=== PATIENT | male | born 1995 ===

== ENCOUNTER 2023-07-07 13:04 | Outpatient (CLI) | payer OTHER ==
[2023-07-07 13:29] LABS: URINE APPEARANCE Clear; URINE BILIRRUBIN Negative (NEGATIVE); URINE BLOOD Negative; URINE COLOR Yellow; URINE GLUCOSE Negative (NEGATIVE); URINE LEUKOCYTE Negative; URINE NITRATE Negative; URINE PROTEIN Negative (NEGATIVE)
[2023-07-07 13:31] LABS: HEMOGLOBIN 14.8 g/dL (13-16.00); MEAN CELL VOLUME 82.8 fL (80.0-100.00); MEAN CORPUSCULAR HEMOGLOBIN 27.8 pg (27.00-32.0); MEAN CORPUSCULAR HGB CONC 33.5 g/dl (32.0-36.0); PLATELET COUNT 238 K/uL (150-450); RED BLOOD COUNT 5.32 M/uL (4.00-6.00); RED CELL DISTRIBUTION WIDTH 13.3 % (11.5-14.5)
[2023-07-07 13:33] LABS: URINE BACTERIA 16.3 uL (0.0-1933); URINE EPITHELIAL CELLS 1.5 uL (0.0-38.8); URINE RBC 5.3 uL (0.0-20.8)
[2023-07-07 14:15] LABS: ALBUMIN 3.9 gm/dL (3.4-5.0); BILIRUBIN TOTAL 1.02 mg/dL (0.3-1.2); CALCIUM 9.3 mg/dL (8.5-10.1); CHOL HDL RATIO 3.9 (0-5.0); CREATININE SERUM 1.06 mg/dL (0.70-1.30); GFR 83.19; GLOBULINA 3.5 G/DL (2.4-3.5); POTASSIUM 4.27 mEq/L (3.5-5.1); TOTAL PROTEIN 7.4 gm/dL (6.4-8.2)
[2023-07-07] MEDS ORDERED: SINGULAIR10 MG PO (15:10)
[2023-07-07] MEDS ORDERED: LOSART PO (15:10)
[2023-07-07] MEDS ORDERED: COZAAR25 MG PO (15:10)
[2023-07-07] MEDS ORDERED: SYNTHROID75 MCG PO (15:11)
== END 2023-07-07 13:05 | disposition home or self-care (01) ==
LOC: LAB 13:04
PROVIDERS: ATTEND Internal Medicine
DX: B35.4 Tinea corporis (principal); E55.9 Vitamin D deficiency, unspecified; Z88.0 Allergy status to penicillin; Z88.2 Allergy status to sulfonamides; Z88.6 Allergy status to analgesic agent

== ENCOUNTER → 2024-02-18 08:15 | Outpatient (CLI) | payer OTHER ==
[~2024-02-18 08:15] MED LIST: COZAAR25 MG PO; LOSART PO; SINGULAIR10 MG PO; SYNTHROID75 MCG PO
[2024-02-18 10:03] LABS: PH,URINE 7.5 (5.0-8.0); URINE APPEARANCE Clear; URINE BILIRRUBIN Negative (NEGATIVE); URINE BLOOD Negative; URINE COLOR Yellow; URINE GLUCOSE Negative (NEGATIVE); URINE LEUKOCYTE Negative; URINE NITRATE Negative; URINE PROTEIN Negative (NEGATIVE); URINE UROBILINOGEN 0.2 E.U./dl
[2024-02-18 10:11] LABS: HEMATOCRIT 42.1 % (39.0-48.0); HEMOGLOBIN 14.1 g/dL (13-16.00); MEAN CELL VOLUME 84.3 fL (80.0-100.00); MEAN CORPUSCULAR HEMOGLOBIN 28.2 pg (27.00-32.0); MEAN CORPUSCULAR HGB CONC 33.4 g/dl (32.0-36.0); PLATELET COUNT 225 K/uL (150-450); RED CELL DISTRIBUTION WIDTH 13.8 % (11.5-14.5)
[2024-02-18 10:16] LABS: URINE EPITHELIAL CELLS 0.4 uL (0.0-38.8); URINE RBC 0.9 uL (0.0-20.8); URINE WBC 0.9 uL (0.0-23.2)
[2024-02-18 10:38] LABS: ALBUMIN 3.8 gm/dL (3.4-5.0); BILIRUBIN TOTAL 0.58 mg/dL (0.3-1.2); CALCIUM 9.1 mg/dL (8.5-10.1); CREATININE SERUM 0.9 mg/dL (0.70-1.30); GFR 99.76; GLOBULINA 3.4 G/DL (2.4-3.5); POTASSIUM 3.94 mEq/L (3.5-5.1); TOTAL PROTEIN 7.2 gm/dL (6.4-8.2)
== END | disposition home or self-care (01) ==
LOC: LAB 08:15
PROVIDERS: ATTEND Internal Medicine
DX: E78.00 Pure hypercholesterolemia, unspecified (principal); E55.9 Vitamin D deficiency, unspecified; Z00.01 Encounter for general adult medical examination with abnormal findings

== ENCOUNTER 2024-06-02 09:57 | Outpatient (CLI) | payer OTHER ==
[2024-06-02 10:44] LABS: CHOL HDL RATIO 3.3 (0-5.0)
== END 2024-06-02 10:03 | disposition home or self-care (01) ==
LOC: LAB 09:57
PROVIDERS: ATTEND Internal Medicine
DX: E78.00 Pure hypercholesterolemia, unspecified (principal)

== ENCOUNTER 2025-02-18 08:58 | Outpatient (CLI) | payer OTHER ==
[2025-02-18 10:31] LABS: BASO % 0.2 % (0.1-1.2); EOS # 0.09 (0.04-0.54); EOS % 2.2 % (0.7-7.0); LYMPH # 2.01 (1.18-3.74); LYMPH % 49.4 % (19.3-53.1); MEAN PLATELET VOLUME 10.10 fl (9.4-12.4); MONO # 0.26 (0.24-0.82); MONO % 6.4 % (4.7-12.5); NEUT # 1.69 (1.56-6.13); NEUT % 41.6 % (34.0-71.1); RED CELL DISTRIBUTION WIDTH 12.7 % (11.6-14.4)
[2025-02-18 10:39] LABS: URINE APPEARANCE Clear; URINE BILIRRUBIN Negative (NEGATIVE); URINE BLOOD Negative; URINE COLOR Yellow; URINE GLUCOSE Negative (NEGATIVE); URINE KETONE Negative (NEGATIVE); URINE LEUKOCYTE Negative; URINE NITRATE Negative; URINE PROTEIN Negative (NEGATIVE); URINE UROBILINOGEN 1.0 E.U./dl
[2025-02-18 10:43] LABS: URINE BACTERIA 7.1 uL (0.0-1933); URINE RBC 2.3 uL (0.0-20.8)
[2025-02-18 11:03] LABS: URINE CAST 0.00 uL (0.0-1.40); URINE EPITHELIAL CELLS 0.6 uL (0.0-38.8); URINE WBC 1.0 uL (0.0-23.2)
[2025-02-18 11:22] LABS: ALT/SGPT 33.0 U/L (12-78); AST/SGOT 21.0 U/L (15-37); BILIRUBIN TOTAL 0.67 mg/dL (0.3-1.2); BUN CREA RATIO 9.0 (7.0-25.0); CHOL HDL RATIO 3.9 (0-5.0); CREATININE SERUM 0.96 mg/dL (0.70-1.30); GFR 91.97; GLOBULINA 3.5 G/DL (2.4-3.5); GLUCOSE FASTING 95.0 mg/dL (65-100); HDL 48.0 mg/dl (40-60); LDL 128.0 mg/dl (0-130); OSMOLALITY SERUM 283.0 MOSM/KG (275-295); VLDL 11.0 (0-39)
== END 2025-02-18 09:00 | disposition home or self-care (01) ==
LOC: LAB 08:58
PROVIDERS: ATTEND Internal Medicine
DX: Z70.0 Counseling related to sexual attitude (principal); Z00.00 Encounter for general adult medical examination without abnormal findings